=== PATIENT | male | born 1950 | race Caucasian/White ===

== ENCOUNTER → 2020-07-16 | Outpatient (CLI) | payer MEDICARE ==
[2015-11-30 01:37] VITALS: BP 127/88
== END ==
LOC: LAB 07:45
PROVIDERS: ATTEND Nurse Anesthetist, Certified Registered
DX: Z01.812 Encounter for preprocedural laboratory examination (principal); Z20.822 Contact with and (suspected) exposure to COVID-19; K58.9 Irritable bowel syndrome, unspecified
CPT/HCPCS: U0003

== ENCOUNTER → 2020-07-20 | Day surgery (SDC) | payer MEDICARE ==
[~2020-07-20] MED LIST: GLYCOPYRROLATE 1 MG/5 ML VIAL. ONE; IPRATRPIUM/ALBUTEROL 0.5/2.5MG 3 ML NEBU. NEB PRN; IV RINGERS SOLUTION,LACTATED 1,000 ML IV SCH; LIDOCAINE 2% PF 5 ML VIAL. ONE; MIDAZOLAM HCL PF 2 MG/2 ML VIAL. IV ONE; ONDANSETRON PF 4 MG/2 ML VIAL. IV PRN; PROPOFOL 10,000 MCG/ML (20ML) VIAL IV ONE
[2020-07-20 11:46] VITALS: BP 133/85
--- NOTE | 2020-07-22 20:36 | PATHOLOGY ---
[facility] Accession Number: [id number] . 01 Material submitted: . PART A: colon - TRANSVERSE COLON POLYP. Modifiers: transverse PART B: colon - ASCENDING COLON POLYP. Modifiers: ascending . 01 Clinical history: . HX POLYPS . 02 Diagnosis: A. Colonic mucosa, transverse colon polyp: - Tubular adenoma. . B. Colonic mucosa, ascending colon polyp: - Tubular adenoma. ([facility] 07/22/2020) [facility] 07/22/2020 0913 Local . 02 Comment: There is no high-grade dysplasia or evidence of malignancy. ([facility] 07/22/2020) . 02 Electronically signed: . Shamir Card MD, Pathologist NPI- [id number] . 01 Gross description: . A. The specimen is received in formalin, labeled "Shamir Vogellure, transverse colon polyp". Received is a segment of pale hemphill tissue measuring 0.5 cm in maximum dimensions. The specimen is submitted entirely in cassette A1. . B. The specimen is received in formalin, labeled "Shamir Woody, ascending polyp". Received is a segment of pale hemphill tissue measuring 0.5 cm in maximum dimensions. The specimen is submitted entirely in cassette B1. ([facility]; 07/21/2020) [facility]AC 07/21/2020 1706 Local . 02 Pathologist provided ICD-10: D12.3, D12.2 . 02 CPT . 059018, 105652 Specimen Comment: Report sent to / Performed at: [address], [place], [place] [id number] MD Aldo Demarco MD Phone: [phone] Performed at: 02 [facility] [address] [place], [place] [id number] MD Shamir Card MD Phone: [phone]
== END | disposition home or self-care (01) ==
LOC: SURG 10:04
PROVIDERS: ATTEND Internal Medicine Gastroenterology
DX: K58.9 Irritable bowel syndrome, unspecified (principal); K57.30 Diverticulosis of large intestine without perforation or abscess without bleeding; K64.8 Other hemorrhoids; D12.3 Benign neoplasm of transverse colon; D12.2 Benign neoplasm of ascending colon; I10 Essential (primary) hypertension; E78.5 Hyperlipidemia, unspecified; Z86.010 Personal history of colon polyps; Z88.0 Allergy status to penicillin
CPT/HCPCS: 45380; 45385; 88305; J2001; J2704; J3490; J7120

== ENCOUNTER 2021-05-13 13:09 | Emergency (ER) | payer MEDICARE ==
[~2021-05-13] VITALS: Ht 172.7 cm; Wt 84.1 kg
[2021-05-13 13:20] VITALS: BP 133/88
[2021-05-13] MEDS ORDERED: IOHEXOL 350 MG/ML 100 ML VIAL. IV ONE (14:00)
--- NOTE | 2021-05-13 14:32 | PHYS DOC ---
Past History Past Medical History: High Cholesterol, Hypertension, TIA Past Surgical History: Tonsillectomy, Other Alcohol Use: None Drug Use: None Adult General Chief Complaint Chief Complaint: SYNCOPE HPI HPI Patient is a 71-year-old male patient with history of hypertension, TIA, high cholesterol, who presents the ED today to be evaluated after having a syncope episode. Patient states he was drinking canned soda, he states he fell back and passed out for 2-3 seconds, denies hitting his head on the ground, he states somehow the soda in his hand never spilled. He also has a very good recollection of the syncope episode. Patient denies any headache. Denies any chest pain or shortness of breath. Denies any neck pain. Patient states his had a similar syncope episode before. Review of Systems Review of Systems Constitutional: Denies fever or chills [] Eyes: Denies change in visual acuity, redness, or eye pain [] HENT: Denies nasal congestion or sore throat [] Respiratory: Denies cough or shortness of breath [] Cardiovascular: No additional information not addressed in HPI [] GI: Denies abdominal pain, nausea, vomiting, bloody stools or diarrhea [] : Denies dysuria or hematuria [] Musculoskeletal: Denies back pain or joint pain [] Integument: Denies rash or skin lesions [] Neurologic: Reports syncope episode. Denies headache, focal weakness or sensory changes [] All other systems were reviewed and found to be within normal limits, except as documented in this note. Current Medications Current Medications Current Medications Medications (Trade) Dose Ordered Sig/Sharona Start Time Stop Time Status Last Admin Dose Admin Iohexol (Omnipaque 350 Mg/ml) 100 ml 1X ONCE 05/13/21 14:00 05/13/21 14:20 DC 05/13/21 14:24 100 ML Allergies Allergies Allergies Coded Allergies Type Severity Reaction Last Updated Verified Penicillins Allergy Intermediate 11/30/15 Yes Physical Exam Physical Exam Constitutional: Well developed, well nourished, no acute distress, non-toxic appearance. [] HENT: Normocephalic, atraumatic, bilateral external ears normal, oropharynx moist, no oral exudates, nose normal. [] Eyes: PERRLA, EOMI, conjunctiva normal, no discharge. [] Neck: Normal range of motion, no tenderness, supple, no stridor. [] Cardiovascular:Heart rate regular rhythm, no murmur [] Lungs & Thorax: Bilateral breath sounds clear to auscultation [] Abdomen: Bowel sounds normal, soft, no tenderness, no masses, no pulsatile masses. [] Skin: Warm, dry, no erythema, no rash. [] Back: No tenderness, no CVA tenderness. [] Extremities: No tenderness, no cyanosis, no clubbing, ROM intact, no edema. [] Neurologic: Alert and oriented X 3, normal motor function, normal sensory function, no focal deficits noted. Cranial nerves II through XII intact Psychologic: Affect normal, judgement normal, mood normal. [] Current Patient Data Vital Signs Vital Signs Date Time Temp Pulse Resp B/P (MAP) Pulse Ox O2 Delivery O2 Flow Rate FiO2 05/13/21 13:20 98.3 63 16 133/88 (103) 97 Room Air EKG EKG [address] Ansari sinus rhythm heart rate 61 no STEMI [] Radiology/Procedures Radiology/Procedures []PROCEDURE: CT ANGIOGRAPHY HEAD AND NECK PQRS Compliance Statement: One or more of the following individualized dose reduction techniques were utilized for this examination: 1. Automated exposure control 2. Adjustment of the mA and/or kV according to patient size 3. Use of iterative reconstruction technique CTA HEAD AND NECK W/WO CONTRAST Clinical Indication: Reason: syncope / Spl. Instructions: Comparison: CT head without contrast, earlier same day. Technique: Helical CT imaging from inferior to the aortic arch to the skull vertex is performed after 100 cc of Omnipaque [address] angiogram protocol. 3-D MIP reconstructions of the cervical carotid arteries and [place] are performed. PQRS Compliance Statement - Stenosis calculations for CT, MR and conventional angiography are based upon measurement of the distal ICA diameter in accordance with the NASCET methodology. Stenosis calculations for carotid ultrasound studies are derived from validated velocity criteria which are known to correlate with the NASCET methodology. Findings: Aortic arch branches are patent. The common carotid arteries are patent. The carotid bifurcations are patent. There is minimal calcification on the left. The cervical internal carotid arteries are patent. The cervical vertebral arteries are patent. There is no evidence of dissection. The basilar artery is patent. The posterior circulation is intact. There is persistent origin of the right posterior cerebral artery. The distal internal carotid arteries are patent. The anterior circulation is intact. No intracranial aneurysm or significant stenosis is identified. There is no obvious abnormality of the dural venous sinuses. No abnormal enhancement in the brain parenchyma is appreciated. The upper lungs are clear. There is no cervical adenopathy. There is moderate degenerative spondylosis of the cervical spine. The alignment is maintained. IMPRESSION: 1. There is no large vessel occlusion. 2. There is no significant stenosis of the cervical vertebral or carotid arteries. Electronically signed by: Dmitry Rivers MD (05/13/2021 3:12 PM) [id number] DICTATED AND SIGNED BY: DMITRY RIVERS MD DATE: 05/13/21 1505 CC: EMERGENCY,DEPARTMENT; MARLENE STATON APRN; QUINTIN LEI ~[facility] 0 PROCEDURE: CT HEAD WO CONTRAST CT HEAD/BRAIN WO dated 05/13/2021 1:35 PM. Comparison: None. Clinical Indication: Reason: syncope / Spl. Instructions: / History: Technical factors: Contiguous 5 mm axial images of the head were obtained from the skullbase to the vertex. No contrast was administered. Findings: There is no apparent intracranial hemorrhage or abnormal extra-axial fluid collection. No area of abnormal density is seen in the brain. The ventricles and basilar cisterns are normally positioned. Bone windows reveal no apparent fracture of the skull or abnormal sinus or mastoid opacification. Impression: No evidence of acute intracranial abnormality. Electronically signed by: Lisbet Nunez Jr., MD (05/13/2021 2:56 PM) [id number] DICTATED AND SIGNED BY: LISBET NUNEZ Jr, MD DATE: 05/13/21 1454 CC: EMERGENCY,DEPARTMENT; MARLENE STATON APRN; QUINTIN LEI ~[facility] 0 PROCEDURE: PORTABLE CHEST 1V XR CHEST 1V History: Syncope Comparison: None. Technique: AP radiograph of the chest. Findings: The lungs are adequately and symmetrically inflated. No airspace consolidation, pleural effusion or pneumothorax. The cardiomediastinal silhouette and pulmonary vasculature are within normal limits. No acute osseous abnormality. Flowing osteophytes in the thoracic spine. Soft tissues are unremarkable. Impression: 1. No acute cardiopulmonary process. Electronically signed by: Luis Arias MD (05/13/2021 3:11 PM) [facility] DICTATED AND SIGNED BY: LUIS ARIAS MD DATE: 05/13/21 1509 CC: EMERGENCY,DEPARTMENT; MARLENE STATON APRN; QUINTIN LEI ~[facility] 0 Heart Score C/O Chest Pain: N/A Risk Factors: Risk Factors: DM, Current or recent (<one month) smoker, HTN, HLP, family history of CAD, obesity. Risk Scores: Risk Factors: DM, Current or recent (<one month) smoker, HTN, HLP, family history of CAD, obesity. Course & Med Decision Making Course & Med Decision Making Pertinent Labs and Imaging studies reviewed. (See chart for details) This is a 71-year-old male patient presented to the ED today to be evaluated after having a syncope episode, interestingly patient seem to have a good recollection of the syncope episode neither did he spill the drink he had in his hand when he fell. CT of the head is negative, CT angio of the head and neck is negative, EKG is negative, CBC CMP troponin negative. Patient not interested in staying in the hospital. Was discharged home. Instructed to follow-up with PCP next week and return to the ED at any point symptoms worsen. Provided neurology for follow-up as well Dragon Disclaimer Dragon Disclaimer This electronic medical record was generated, in whole or in part, using a voice recognition dictation system. Departure Departure: Impression: Primary Impression: Syncope Additional Impression: Fall Disposition: 01 HOME / SELF CARE / HOMELESS Condition: STABLE Referrals: QUINTIN LEI (PCP) follow up in one week Patient Instructions: Syncope, Vhyo-pc-[place] Additional Instructions: You were evaluated in the ED after having a syncope episode, CT of the head, CT angio head and neck, chest x-ray negative. Your lab work is negative for any acute findings. Please follow-up with your primary care doctor, section maintainer and neurologist next week. Problem Qualifiers Primary Impression: Syncope Syncope type: unspecified Qualified Codes: R55 - Syncope and collapse Additional Impression: Fall Encounter type: initial encounter Qualified Codes: W19.XXXA - Unspecified fall, initial encounter MARLENE STATON APRN May 13, 2021 14:32
[2021-05-13 14:33] LABS: BASO % 1 % (0-3); EOS # 0.2 x10^3/uL (0.0-0.7); EOS % 3 % (0-3); HEMATOCRIT 43.8 % (39.0-53.0); HEMOGLOBIN 14.9 g/dL (13.0-17.5); LYMPH # 1.8 x10^3/uL (1.0-4.8); LYMPH % 32 % (24-48); MEAN CORPUSCULAR HEMOGLOBIN 33 pg (25-35); MEAN CORPUSCULAR HGB CONC 34 g/dL (31-37); MEAN CORPUSCULAR VOLUME 95 fL (79-100); MONO # 0.7 x10^3/uL (0.0-1.1); MONO % 12 % (0-9); NEUT % 53 % (31-73); PLATELET COUNT 146 x10^3/uL (140-400); RED BLOOD COUNT 4.59 x10^6/uL (4.30-5.70); RED CELL DISTRIBUTION WIDTH 13.6 % (11.5-14.5); WHITE BLOOD COUNT 5.7 x10^3/uL (4.0-11.0)
[2021-05-13 14:43] LABS: CALCIUM 8.4 mg/dL (8.5-10.1); CREATININE 1.2 mg/dL (0.7-1.3); GFR 59.7; POTASSIUM 4.8 mmol/L (3.5-5.1)
[2021-05-13 14:49] LABS: ALBUMIN/GLOBULIN RATIO 1.6 (1.0-1.7); MAGNESIUM 2.1 mg/dL (1.8-2.4); TOTAL BILIRUBIN 0.6 mg/dL (0.2-1.0); TOTAL PROTEIN 6.5 g/dL (6.4-8.2)
--- NOTE | 2021-05-13 14:59 | RAD ---
CT HEAD/BRAIN WO dated 05/13/2021 1:35 PM. Comparison: None. Clinical Indication: Reason: syncope / Spl. Instructions: / History: Technical factors: Contiguous 5 mm axial images of the head were obtained from the skullbase to the vertex. No contrast was administered. Findings: There is no apparent intracranial hemorrhage or abnormal extra-axial fluid collection. No area of abn ormal density is seen in the brain. The ventricles and basilar cisterns are normally positioned. Bone windows reveal no apparent fracture of the skull or abnormal sinus or mastoid opacification. Impression: No evidence of acute intracranial abnormality. Electronically signed by: Damon Nunez Jr., MD (05/13/2021 2:56 PM) [id number]
--- NOTE | 2021-05-13 15:13 | RAD ---
XR CHEST 1V History: Syncope Comparison: None. Technique: AP radiograph of the chest. Findings: The lungs are adequately and symmetrically inflated. No airspace consolidation, pleural effusion or p neumothorax. The cardiomediastinal silhouette and pulmonary vasculature are within normal limits. No acute osseous abnormality. Flowing osteophytes in the thoracic spine. Soft tissues are unremarkable. Impression: 1. No acute cardiopulmonary process. Electronically signed by: Luis Lawson MD (05/13/2021 3:11 PM) [facility]
--- NOTE | 2021-05-13 15:15 | RAD ---
PQRS Compliance Statement: One or more of the following individualized dose reduction techniques were utilized for this examinat ion: 1. Automated exposure control 2. Adjustment of the mA and/or kV according to patient size 3. Use of iterative reconstruction technique CTA HEAD AND NECK W/WO CONTRAST Clinical Indication: Reason: syncope / Spl. Instructions: Comparison: CT head without contrast, earlier same day. Technique: Helical CT imaging from inferior to the aortic arch to the skull vertex is performed after 100 cc of Omnipaque [address] angiogram protocol. 3-D MIP reconstructions of the cerv ical carotid arteries and [place] are performed. PQRS Compliance Statement - Stenosis calculations for CT, MR and conventional angiography are based u nabil measurement of the distal ICA diameter in accordance with the NASCET methodology. Stenosis calcu lations for carotid ultrasound studies are derived from validated velocity criteria which are known t o correlate with the NASCET methodology. Findings: Aortic arch branches are patent. The common carotid arteries are patent. The carotid bifurcations are patent. There is minimal calcification on the left. The cervical internal carotid arteries are paten t. The cervical vertebral arteries are patent. There is no evidence of dissection. The basilar artery is patent. The posterior circulation is intact. There is persistent origin of the right loading unit operator ior cerebral artery. The distal internal carotid arteries are patent. The anterior circulation is int act. No intracranial aneurysm or significant stenosis is identified. There is no obvious abnormality of the dural venous sinuses. No abnormal enhancement in the brain par enchyma is appreciated. The upper lungs are clear. There is no cervical adenopathy. There is moderate degenerative spondylosis of the cervical spine. The alignment is maintained. IMPRESSION: 1. There is no large vessel occlusion. 2. There is no significant stenosis of the cervical vertebral or carotid arteries. Electronically signed by: Dmitry Rivers MD (05/13/2021 3:12 PM) [id number]
[2021-05-13 16:25] LABS: BARBITURATES NEG (NEG); BENZODIAZEPINES NEG (NEG); CANNABINOIDS NEG (NEG); COCAINE NEG (NEG); METHADONE NEG (NEG); OPIATES NEG (NEG); PHENCYCLIDINE NEG (NEG)
[2021-05-13 16:30] LABS: AMPHETAMINE/METHAMPHETAMINE NEG (NEG)
[2021-05-13 16:45] LABS: BACTERIA,URINE 0 /HPF (0-FEW); BILIRUBIN,URINE NEG (NEG); CLARITY,URINE CLEAR; COLOR,URINE YELLOW; GLUCOSE,URINE NEG (NEG); NITRITE,URINE NEG (NEG); RBC,URINE 0 /HPF (0-2); UROBILINOGEN,URINE 0.2 mg/dL (0.2 mg/dL); WBC,URINE 0 /HPF (0-4)
--- NOTE | 2021-05-14 07:24 | EKG ---
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
== END 2021-05-13 16:32 | disposition home or self-care (01) ==
LOC: ER 13:14
DX: R55 Syncope and collapse (principal); E78.5 Hyperlipidemia, unspecified; I10 Essential (primary) hypertension; Z86.73 Personal history of transient ischemic attack (TIA), and cerebral infarction without residual deficits; Z88.0 Allergy status to penicillin
CPT/HCPCS: 36415; 70450; 70496; 70498; 71045; 80053; 80307; 81001; 82553; 83735; 83880; 84484; 85025; 85610; 85730; 93005; 99285; Q9967